=== PATIENT | female | born 1995 | race African-American/Black ===

== ENCOUNTER 2016-08-14 12:02 | Observation (INO) | payer MEDICAID ==
[~2016-08-14] VITALS: Ht 170.2 cm; Wt 93.9 kg
[2016-08-14 13:44] LABS: CLARITY URINE CLEAR (CLEAR); COLOR URINE YELLOW (YELLOW); GLUCOSE URINE NEGATIVE (NEGATIVE); KETONES URINE NEGATIVE (NEGATIVE); LEUKOCYTE ESTERASE URINE NEGATIVE (NEGATIVE); NITRITE URINE NEGATIVE (NEGATIVE); OCCULT BLOOD URINE NEGATIVE (NEGATIVE); PH URINE 5.5 (4.5-8.0); PROTEIN URINE NEGATIVE (NEGATIVE); SPECIFIC GRAVITY URINE 1.017 (1.005-1.030); UROBILINOGEN URINE 0.2 E.U./dL (0.2-1.0)
[2016-08-14] MEDS ORDERED: PREN-88 PO (14:21)
== END 2016-08-14 14:30 | disposition home or self-care (01) ==
LOC: L&D 12:02 → UNDOADMOB 12:02 → L&D 12:05
PROVIDERS: ADMIT Obstetrics & Gynecology; ATTEND Obstetrics & Gynecology
DX: O99.512 Diseases of the respiratory system complicating pregnancy, second trimester (principal); R06.02 Shortness of breath; O26.892 Other specified pregnancy related conditions, second trimester; R10.31 Right lower quadrant pain; Z3A.27 27 weeks gestation of pregnancy
CPT/HCPCS: 81003; 99281; G0378

== ENCOUNTER 2016-10-11 16:11 | Inpatient (IN) | payer MEDICAID ==
[~2016-10-11] VITALS: Ht 170.2 cm; Wt 105.7 kg
[~2016-10-11 16:11] MED LIST: PREN-88 PO
[2016-10-11] MEDS ORDERED: PREN-88 PO (16:52)
[2016-10-11] MEDS ORDERED: DEXT 5%/LR + PITOCIN 20UNITS/L 1,000 ML IV SCH (17:53)
[2016-10-11] MEDS ORDERED: LIDOCAINE HCL 1% 20ML VIAL (Pyxis) INJ INFIL NR (18:15)
[2016-10-11] MEDS: LACTATED RINGERS 1,000 ML IV SCH ×2 (18:39→21:08)
[2016-10-11 18:50] LABS: CLARITY URINE CLEAR (CLEAR); COLOR URINE YELLOW (YELLOW); GLUCOSE URINE NEGATIVE (NEGATIVE); KETONES URINE NEGATIVE (NEGATIVE); LEUKOCYTE ESTERASE URINE 1+ (NEGATIVE); NITRITE URINE NEGATIVE (NEGATIVE); OCCULT BLOOD URINE 2+ (NEGATIVE); PH URINE 6.5 (4.5-8.0); PROTEIN URINE NEGATIVE (NEGATIVE); SPECIFIC GRAVITY URINE 1.016 (1.005-1.030)
[2016-10-11 18:57] LABS: BASOPHILS % 0.3 % (0.0-2.0); EOSINOPHILS % 0.5 % (0.0-5.0); HEMATOCRIT. 38.8 % (36.0-48.0); HEMOGLOBIN. 13.2 g/dL (12.0-16.0); LYMPHOCYTES % 26.1 % (20.0-50.0); MEAN CORPUSCULAR HEMOGLOBIN 29.1 pg (28.0-32.0); MEAN CORPUSCULAR VOLUME 85.5 fL (81.0-99.0); MEAN PLATELET VOLUME 10.5 fl (7.4-10.4); MONOCYTES % 8.6 % (2.0-8.0); NEUTROPHILS % 64.5 % (40.0-76.0); PLATELET 178 x1000/uL (130-400); RED BLOOD CELL COUNT 4.53 mill/uL (4.2-5.4); RED CELL DISTRIBUTION WIDTH 14.1 % (11.6-14.6)
[2016-10-11 19:01] LABS: PARTIAL THROMBOPLASTIN TIME 27.8 sec (24.0-34.0); PROTHROMBIN TIME 10.1 sec
[2016-10-11 19:21] LABS: *AMPHETAMINES SCREEN URINE NEGATIVE (NEGATIVE); *BARBITURATES SCREEN URINE NEGATIVE (NEGATIVE); *BENZODIAZEPINES SCREEN URINE NEGATIVE (NEGATIVE); *COCAINE SCREEN URINE NEGATIVE (NEGATIVE); CANNABINOID URINE SCREEN NEGATIVE (NEGATIVE); METHADONE URINE SCREEN NEGATIVE (NEGATIVE); OPIATES URINE SCREEN NEGATIVE (NEGATIVE); PHENCYCLIDINE URINE SCREEN NEGATIVE (NEGATIVE)
[2016-10-11 19:31] LABS: HEPATITIS B SURFACE ANTIGEN NEGATIVE; RUBELLA IGG 71.4 IU/mL (4.99-10)
[2016-10-11] MEDS ORDERED: AMPICILLIN 2,000 MG in SODIUM CHLORIDE 0.9% 100 ML IV SCH (20:00)
[2016-10-11] MEDS ORDERED: MISOPROSTOL 200MCG TABLET VG SCH (20:00)
[2016-10-11] MEDS: BUTORPHANOL TARTRATE 2 MG/ML VIAL IV PRN ×2 (21:10→23:00)
[2016-10-12] MEDS ORDERED: DEXT 5%/LR + PITOCIN 20UNITS/L 1,000 ML IV SCH ×2 (02:11→09:45)
[2016-10-12] MEDS ORDERED: GLYCERIN/WITCH HAZEL LEAF MEDICATED PAD TOP PRN (02:15)
[2016-10-12] MEDS ORDERED: ACETAMINOPHEN WITH CODEINE 300/30MG TABLET PO PRN ×2 (02:15)
[2016-10-12] MEDS ORDERED: METHYLERGONOVINE MALEATE 0.2 MG/ML IM PRN (02:15)
[2016-10-12] MEDS ORDERED: BENZOCAINE/LANOLIN/ALOE VERA SPRAY TOP PRN (02:15)
[2016-10-12] MEDS ORDERED: RHO(D) IMMUNE GLOBULIN 300 MCG/SYR IM PRN (02:15)
[2016-10-12] MEDS ORDERED: IBUPROFEN 400MG TABLET PO PRN (02:15)
[2016-10-12] MEDS ORDERED: IBUPROFEN 800MG TABLET PO PRN (02:15)
[2016-10-12 03:00] VITALS: BP 137/68
[2016-10-12] MEDS ORDERED: SIMETHICONE 80MG TABLET CHEW PO PRN (07:40)
[2016-10-12 08:00] VITALS: BP 118/56
[2016-10-12] MEDS: PRENATAL VIT/FE FUMARATE/FA TABLET PO SCH (09:43)
[2016-10-12 16:28] VITALS: BP 120/78
[2016-10-12 20:12] VITALS: BP 124/74
[2016-10-13 00:11] VITALS: BP_SYST 114; BP_SYST 118; BP_DIAS 64; BP_DIAS 67
[2016-10-13 04:00] VITALS: BP 109/51
[2016-10-13 06:30] LABS: BASOPHILS % 0.2 % (0.0-2.0); EOSINOPHILS % 1.1 % (0.0-5.0); HEMATOCRIT. 37.4 % (36.0-48.0); HEMOGLOBIN. 12.6 g/dL (12.0-16.0); LYMPHOCYTES % 26.9 % (20.0-50.0); MEAN CORPUSCULAR VOLUME 86.1 fL (81.0-99.0); MEAN PLATELET VOLUME 10.7 fl (7.4-10.4); MONOCYTES % 7.1 % (2.0-8.0); NEUTROPHILS % 64.7 % (40.0-76.0); PLATELET 165 x1000/uL (130-400); RED BLOOD CELL COUNT 4.35 mill/uL (4.2-5.4); RED CELL DISTRIBUTION WIDTH 13.8 % (11.6-14.6)
[2016-10-13 08:00] VITALS: BP 130/62
[2016-10-13] MEDS: PRENATAL VIT/FE FUMARATE/FA TABLET PO SCH (08:32)
[2016-10-13 09:50] VITALS: BP 125/78
== END 2016-10-13 11:30 | disposition home or self-care (01) | DRG 560 ==
LOC: L&D 16:11 → OBSVTOIN 16:11 → 8WST 10-12 04:13
PROVIDERS: ADMIT Obstetrics & Gynecology; ATTEND Obstetrics & Gynecology
PROC: 3E0P7GC Introduction of Other Therapeutic Substance into Female Reproductive, Via Natural or Artificial Opening (ICD-10-PCS; 2016-10-11)
PROC: 10E0XZZ Delivery of Products of Conception, External Approach (ICD-10-PCS; principal; 2016-10-11 23:07)
DX: O36.4XX0 Maternal care for intrauterine death, not applicable or unspecified (principal); O32.1XX0 Maternal care for breech presentation, not applicable or unspecified; Z37.1 Single stillbirth; Z3A.36 36 weeks gestation of pregnancy
CPT/HCPCS: 36415; 76815; 80305; 81001; 85025; 85384; 85610; 85730; 86592; 86703; 86762; 86850; 86900; 87340; 88307; G0378; J0290; J0595; J2590; J7050; J7120

== ENCOUNTER 2018-02-11 16:59 | Emergency (ER) | payer MEDICAID ==
[~2018-02-11] VITALS: Ht 170.2 cm; Wt 93.0 kg
[2018-02-11 17:12] VITALS: BP 128/63
[2018-02-12] MEDS ORDERED: FERR325T23 MT (01:57)
== END 2018-02-11 19:30 | disposition left against medical advice (07) ==
LOC: ER 16:59
DX: Z53.21 Procedure and treatment not carried out due to patient leaving prior to being seen by health care provider (principal)

== ENCOUNTER 2018-02-12 01:21 | Observation (INO) | payer MEDICAID ==
[~2018-02-12] VITALS: Ht 170.2 cm; Wt 93.0 kg
[2018-02-12] MEDS ORDERED: FERR325T23 MT (01:57)
== END 2018-02-12 02:30 | disposition home or self-care (01) ==
LOC: L&D 01:21
PROVIDERS: ADMIT Obstetrics & Gynecology; ATTEND Obstetrics & Gynecology
DX: O21.2 Late vomiting of pregnancy (principal); O26.892 Other specified pregnancy related conditions, second trimester; R10.30 Lower abdominal pain, unspecified; O26.812 Pregnancy related exhaustion and fatigue, second trimester; Z3A.20 20 weeks gestation of pregnancy
CPT/HCPCS: 99281; G0378

== ENCOUNTER 2018-04-24 22:55 | Observation (INO) | payer MEDICAID ==
[~2018-04-24] VITALS: Ht 170.2 cm; Wt 108.9 kg
[~2018-04-24 22:55] MED LIST changes: +FERR325T23 MT
[2018-04-25] MEDS ORDERED: BISACODYL 10MG SUPP PR NR
== END 2018-04-25 00:15 | disposition home or self-care (01) ==
LOC: 8 EST LDRP 22:55
PROVIDERS: ADMIT Obstetrics & Gynecology; ATTEND Obstetrics & Gynecology
DX: O26.893 Other specified pregnancy related conditions, third trimester (principal); R10.30 Lower abdominal pain, unspecified; Z3A.31 31 weeks gestation of pregnancy
CPT/HCPCS: 99281; G0378

== ENCOUNTER 2018-05-30 07:15 | Observation (INO) | payer MEDICAID ==
[~2018-05-30] VITALS: Ht 170.2 cm; Wt 11.3 kg
== END 2018-05-30 08:23 | disposition home or self-care (01) ==
LOC: 8 EST LDRP 07:15
PROVIDERS: ADMIT Obstetrics & Gynecology; ATTEND Obstetrics & Gynecology
DX: O36.8130 Decreased fetal movements, third trimester, not applicable or unspecified (principal); O99.513 Diseases of the respiratory system complicating pregnancy, third trimester; J06.9 Acute upper respiratory infection, unspecified; Z3A.36 36 weeks gestation of pregnancy
CPT/HCPCS: 99281; G0378

== ENCOUNTER 2018-06-13 15:28 | Observation (INO) | payer MEDICAID | END 2018-06-13 17:05 | disposition home or self-care (01) | LOC: 8 EST LDRP 15:28 | PROVIDERS: ADMIT Specialist; ATTEND Specialist | DX: O36.8130 Decreased fetal movements, third trimester, not applicable or unspecified (principal); O62.9 Abnormality of forces of labor, unspecified; Z3A.38 38 weeks gestation of pregnancy | CPT/HCPCS: 99281; G0378 ==

== ENCOUNTER 2018-06-27 15:14 | Observation (INO) | payer MEDICAID ==
[~2018-06-27] VITALS: Ht 170.2 cm; Wt 127.5 kg
== END 2018-06-27 16:18 | disposition left against medical advice (07) ==
LOC: 8 EST LDRP 15:14
PROVIDERS: ADMIT Specialist; ATTEND Specialist
DX: O42.92 Full-term premature rupture of membranes, unspecified as to length of time between rupture and onset of labor (principal); O62.9 Abnormality of forces of labor, unspecified; Z3A.39 39 weeks gestation of pregnancy
CPT/HCPCS: 99281; G0378